=== PATIENT | male | born 1955 | race Asian ===

== ENCOUNTER 2018-04-14 17:30 | Observation (INO) | payer OTHER ==
[~2018-04-14] VITALS: Ht 157.5 cm; Wt 54.0 kg
[2018-04-14 18:06] LABS: ABSOLUTE BASOPHIL COUNT 0 /CUMM (0.0-0.2); ABSOLUTE EOSINOPHIL COUNT 0 /CUMM (0.0-0.7); ABSOLUTE GRANULOCYTE CT 4.9 /CUMM (1.4-6.5); ABSOLUTE MONOCYTE COUNT 0.5 /CUMM (0.10-0.60); BASOPHIL % 0.3 % (0.0-2.0); EOSINOPHIL % 0.4 % (0-5); GRANULOCYTE % 65.7 % (42.2-75.2); MEAN CORPUSCULAR HGB 30.8 PG (27.0-31.0); MEAN CORPUSCULAR VOLUME 90.8 FL (80.0-94.0); MEAN PLATELET VOLUME 7.3 FL (7.4-10.4); PLATELET COUNT 295 /CUMM (130-400); RBC DISTRIBUTION WIDTH 12.8 % (11.5-14.5); RED BLOOD CELL CT 4.74 /CUMM (4.70-6.10); WHITE BLOOD CELL COUNT 7.5 /CUMM (4.8-10.8)
--- NOTE | 2018-04-14 20:05 | ED GI/GU/ABDOMINAL COMPLAINT ---
History of Present Illness General Chief Complaint: Abdominal Pain/Flank Pain Stated Complaint: SENT FROM FOR ABD. PAIN Source: patient, friend, physician assistant primary care Exam Limitations: language barrier Vital Signs & Intake/Output Vital Signs & Intake/Output Vital Signs Date Time Temp Pulse Resp B/P B/P Pulse O2 O2 Flow FiO2 Mean Ox Delivery Rate 04/16 0908 64 130/76 04/16 0800 Room Air 04/16 0623 97.5 66 20 130/76 99 Room Air 04/15 2307 98.0 71 18 128/77 97 Room Air 04/15 1358 98.2 80 20 122/70 97 Room Air 04/15 1155 90 124/72 ED Intake and Output 04/16 0000 04/15 1200 Intake Total 2705 850 Output Total Balance 2705 850 Intake, IV 1625 250 Intake, Oral 1080 600 Number 1 Bowel Movements Patient 53.977 kg Weight Allergies Coded Allergies: No Known Allergies (04/14/18) Reconcile Medications Amoxicillin/Potassium Clav (Augmentin 875-125 Tablet) 875 MG-125 MG TABLET 875 MG PO BID infection m Glimepiride 2 MG TABLET 1 TAB PO DAILY DIABETES (Reported) Levothyroxine Sodium 50 MCG TABLET 1 TAB PO DAILY HYPOTHYROID (Reported) Lisinopril 2.5 MG TABLET 1 TAB PO DAILY HTN (Reported) Metformin HCl 1,000 MG TABLET 1 TAB PO BID DIABETES (Reported) Pantoprazole Sodium 40 MG TABLET.DR 1 TAB PO DAILY GASTRITIS (Reported) Pravastatin Sodium 80 MG TABLET 1 TAB PO DAILY Heart (Reported) Triage Note: pt to ed for abd pain. pain has been ongoing for 2 weeks, vomiting and diarrhea started 3 days ago. pt awake/alert with easy wob, MMM. pt primarily nauruan speaking. pt reports feeling dizzy with frequent vomiting. Triage Nurses Notes Reviewed? yes HPI: 62M no known PMH presenting with cramping abdominal pain, diarrhea, nausea, and vomiting that has been worsening for 3 days. He feels ill and has poor PO intake. He denies fever, chills, sore throat, stiff neck, dysuria, chest pain, SOB. No recent travel or sick contacts. Past History Travel History Traveled to [place] past 21 day No Medical History Any Pertinent Medical History? see below for history Neurological: NONE EENT: NONE Cardiovascular: NONE Respiratory: NONE Gastrointestinal: NONE Hepatic: NONE Renal: NONE Musculoskeletal: NONE Psychiatric: NONE Endocrine: diabetes Surgical History Surgical History: non-contributory Psychosocial History What is your primary language Trinidadian Tobacco Use: Never used Family History Hx Contributory? No Review of Systems Review of Systems Constitutional: Reports: no symptoms. EENTM: Reports: no symptoms. Respiratory: Reports: no symptoms. Cardiovascular: Reports: no symptoms. GI: Reports: no symptoms. Genitourinary: Reports: no symptoms. Musculoskeletal: Reports: no symptoms. Skin: Reports: no symptoms. Neurological/Psychological: Reports: no symptoms. Hematologic/Endocrine: Reports: no symptoms. Immunologic/Allergic: Reports: no symptoms. All Other Systems: Reviewed and Negative Physical Exam Physical Exam General Appearance: well developed/nourished, mild distress, appears ill Head: atraumatic, normal appearance Eyes: Bilateral: normal appearance. Ears, Nose, Throat, Mouth: mm dry Neck: normal inspection, supple, full range of motion Respiratory: normal breath sounds, no respiratory distress Cardiovascular: regular rate/rhythm Gastrointestinal: soft, non-tender Back: normal inspection, normal range of motion Extremities: normal range of motion Neurologic/Psych: awake, alert, oriented x 3, normal mood/affect Skin: intact, normal color, warm/dry Core Measures ACS in differential dx? No Sepsis Present: No Sepsis Focused Exam Completed? No Progress Differential Diagnosis: appendicitis, biliary colic, bowel obstruction, cholecystitis, gastritis, pancreatitis Plan of Care: Orders Procedure Date/time Status Change service to 04/16 0726 Active CBC WITHOUT DIFFERENTIAL 04/16 0600 Active BASIC ELECTROLYTES PLUS BUN&CR 04/16 0600 Complete LACTIC ACID 04/16 0127 Complete Discharge Patient 04/16 UNK Active LACTIC ACID 04/15 1709 Complete CULTURE,STOOL 04/15 1411 Active OVA AND PARASITE ANTIGENS 04/15 1411 Active C.DIFFICILE 04/15 1411 Active LACTIC ACID 04/15 1409 Complete MAGNESIUM 04/15 0236 Complete Lab Add-on Test 04/15 UNK Active Nursing Misc 04/15 UNK Active Current Medications Sig/Maritza Start time Last Medication Dose Stop Time Status Admin Insulin Aspart 0 AT BEDTIME 04/15 2100 AC (NovoLOG) Pravastatin Sodium 20 MG 1700 04/15 1700 AC 04/15 (Pravachol) 1654 Levothyroxine Sodium 0.05 MG DAILY 04/15 1000 AC 04/16 (Synthroid) 0908 Lisinopril 2.5 MG DAILY 04/15 0906 AC 04/16 (Prinivil) 0908 Enoxaparin Sodium 40 MG DAILY 04/15 0900 AC 04/16 (Lovenox) 09 Pantoprazole Sodium 40 MG DAILY 04/15 0900 AC 04/16 (Protonix) 0909 Insulin Aspart 0 TIDAC 04/15 0800 AC 04/16 (NovoLOG) 0908 Acetaminophen 650 MG Q6P PRN 04/15 0145 AC 04/15 (Tylenol) 0748 Acetaminophen 1,000 MG Q6 PRN 04/15 0145 AC (Ofirmev) Dextrose/Sodium 1,000 ML .Q8H 04/15 0145 AC 04/16 Chloride 0551 (D5W-1/2 Normal Saline 1000ML) Lidocaine 1 PAT Q24H PRN 04/15 0145 AC (Lidoderm) Ondansetron HCl 4 MG Q8P PRN 04/15 0145 AC (Zofran) Polyethylene Glycol 17 GM AT BEDTIME PRN 04/15 0145 AC (Miralax) Senna/Docusate Sodium 1 TAB AT BEDTIME PRN 04/15 0145 AC (Senokot S) Laboratory Tests 04/16/18 1000: CBC w Diff Pending, WBC Pending, RBC Pending, Hgb Pending, Hct Pending, MCV Pending, MCH Pending, MCHC Pending, RDW Pending, Plt Count Pending, MPV Pending 04/16/18 0645: Anion Gap 10, Estimated GFR > 60, BUN/Creatinine Ratio 10.0 04/16/18 0320: Lactic Acid 1.5 04/15/18 1730: Lactic Acid 2.6 H 04/15/18 1500: Lactic Acid 2.3 H Microbiology 04/16 945 STOOL: Cryptosporidium Antigen - RECD 04/16 945 STOOL: Giardia Antigen (ZEN) - RECD 04/16 945 STOOL: Clostridium difficile Toxin A & B - RECD 04/16 945 STOOL: Stool Culture - RECD 04/15 1819 STOOL: Clostridium difficile Toxin A & B - CAN Cancelled: MERGED Initial ED EKG: none Departure Departure Disposition: HOME OR SELF CARE Condition: Stable Clinical Impression Primary Impression: Acute gastroenteritis Secondary Impressions: Dehydration, Lactic acidosis Referrals: Jaspreet Vargas MD (PCP/Family) Departure Forms: Customer Survey General Discharge Information Prescriptions: Current Visit Scripts Amoxicillin/Potassium Clav (Augmentin 875-125 Tablet) 875 MG PO BID #14 TAB m Admission Note Spoke With: Allan Deleon MD Documentation of Exam: Documentation of any treatments & extenuating circumstances including Concerns Regarding Discharge (functional status, medication knowledge or non-compliance, living conditions, etc.) that warrant an admission rather than observation: severe dehydration with lactic acidosis due to gastroenteritis, will require admission for fluid resuscitation, monitoring of lactate, GI consult, ID consult
--- NOTE | 2018-04-14 21:21 | CT SCAN REPORT ---
EXAMINATION: CT ABDOMEN AND PELVIS WITH CONTRAST CLINICAL INFORMATION: Abdominal pain and diarrhea. Rule out colitis. COMPARISON: None TECHNIQUE: Multidetector volumetric imaging was performed of the abdomen and pelvis following IV administration of 95 mL of Optiray 320 intravenous contrast. Sagittal and coronal reformatted images were obtained on the technologist's workstation. DLP: 263 mGy-cm FINDINGS: LUNG BASES: Mild dependent subsegmental atelectatic changes are present in the lung bases. There are no pleural effusions. LIVER, GALLBLADDER, AND BILIARY TREE: The liver is normal in size, shape, and attenuation. No focal hepatic lesion or biliary ductal dilatation is present. The gallbladder is unremarkable with no evidence of radiopaque gallstones, gallbladder wall thickening, or obvious pericholecystic inflammatory changes. PANCREAS: Homogeneous in attenuation. SPLEEN: Unremarkable. ADRENAL GLANDS: Unremarkable. KIDNEYS AND URETERS: The kidneys are normal in size, shape, and attenuation. No hydronephrosis, hydroureter, or calculi seen. No perinephric stranding. BLADDER: Well distended without wall thickening or retained stones. GASTROINTESTINAL TRACT: No large bowel thickening is seen. There are no pericolonic inflammatory changes or diverticular disease. There is no evidence of a bowel obstruction. The appendix is normal. ABDOMINAL WALL: No hernia is appreciated. LYMPH NODES: No bulky adenopathy. VASCULAR: Mild atherosclerotic wall calcifications of the abdominal aorta without aneurysmal dilatation. PELVIC VISCERA: Unremarkable. OSSEOUS STRUCTURES: No acute osseous abnormality is seen. IMPRESSION: No bowel thickening or pericolonic inflammatory changes to suggest colitis. No diverticular disease or bowel obstruction. Otherwise, no acute process.
--- NOTE | 2018-04-14 22:58 | History & Physical ---
Ran Marroquin 04/14/18 0743: General Information and HPI MD Statement: I have seen and personally examined WENDY LIMA and documented this H&P. The patient is a 62 year old M who presented with a patient stated chief complaint of [nausea & vomiting]. 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 The pain is mainly in the LUQ, but sometimes radiates to his back. The patient reportedly cannot stand the sight of food without becoming nauseous. He was recently seen by Dr. Zacarias for EGD with biopsy, has not followed up those results. The patient is a vegetarian, and has not eaten anything out of the ordinary lately, nor has he eaten anything that caused others to become ill. He is a non-smoker, denies etoh use or other drug use. 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 Allergies/Medications Allergies: Coded Allergies: No Known Allergies (04/14/18) Compliance With Home Meds: GOOD Past History Travel History Traveled to [place] past 21 day No Medical History Neurological: NONE EENT: NONE Cardiovascular: NONE Respiratory: NONE Gastrointestinal: NONE Hepatic: NONE Renal: NONE Musculoskeletal: NONE Psychiatric: NONE Endocrine: diabetes Surgical History Surgical History: non-contributory Review of Systems Review of Systems Constitutional: Reports: chills. Denies: fever, weakness. Cardiovascular: Denies: chest pain, palpitations, peripheral edema. Respiratory: Denies: cough, short of breath, wheezing. GI: Reports: abdominal pain (LUQ, sometimes radiates @ back), nausea, changes in stool (yellow/caruso stool), vomiting. Denies: diarrhea, melena, bloody stool. Exam & Diagnostic Data Last 24 Hrs of Vital Signs/I&O Vital Signs Date Time Temp Pulse Resp B/P B/P Pulse O2 O2 Flow FiO2 Mean Ox Delivery Rate 04/14 2153 98.2 86 18 140/81 99 Room Air 04/14 1742 96.2 84 16 116/78 96 Room Air Intake & Output 04/15 0800 04/15 0000 04/14 1600 Intake Total 0 Output Total Balance 0 Intake, Oral 0 Patient 53.977 kg 53.977 kg Weight Weight Reported by Patient Measurement Method Physical Exam General Appearance Alert, Oriented X3, Cooperative, No Acute Distress HEENT Atraumatic, PERRLA Cardiovascular Regular Rate, Normal S1, Normal S2, No Murmurs, Superficial pain to palpation on the L chest Lungs Clear to Auscultation, Normal Air Movement Abdomen Normal Bowel Sounds, Soft, Tenderness to palpation in the LUQ and RLQ Neurological Normal Speech, Strength at 5/5 X4 Ext Extremities No Clubbing, No Cyanosis Last 24 Hrs of Labs/Alejandro: Laboratory Tests 04/14/18 1757: Anion Gap 11, Estimated GFR > 60, BUN/Creatinine Ratio 13.8, Glucose 156 H, Lactic Acid 2.3 H, Calcium 9.7, Total Bilirubin 0.8, AST 21, ALT 27, Alkaline Phosphatase 59, Total Protein 7.1, Albumin 4.4, Globulin 2.7, Albumin/Globulin Ratio 1.6, Amylase 64, Lipase 137, CBC w Diff NO MAN DIFF REQ, RBC 4.74, MCV 90.8, MCH 30.8, MCHC 34.0, RDW 12.8, MPV 7.3 L, Gran % 65.7, Lymphocytes % 26.2 , Monocytes % 7.4, Eosinophils % 0.4, Basophils % 0.3, Absolute Granulocytes 4.9 , Absolute Lymphocytes 2.0, Absolute Monocytes 0.5, Absolute Eosinophils 0, Absolute Basophils 0 Microbiology 04/14 2225 URINE ROUT: Urine Culture - RECD 04/14 2203 STOOL: Clostridium difficile Toxin A & B - COLB Assessment/Plan Assessment: 62 year old male with history of diabetes mellitus, presenting with abdominal pain and nausea/vomiting suggestive of gastritis. Lactic acid in the ED was found to be 2.3, but he was afebrile and vitals were grossly within normal limits. Liver enzymes as well as amylase/lipase were likewise wnl. He was not known to have any episodes of emesis in the ED, and recent EGD/colonoscopy on 03/[address] Zacarias showed duodenal mucosal atrophy and mild gastritis, as well as burned-out colitis. Problems: 1. Gastritis 2. Diabetes mellitus Plan: -Place patient in observation status, general medicine -Zofran 4mg IV Q8h prn -D5W-1/2 NS 75mL/hr -Low-dose Novolog ISS with TID and HS coverage -Gastroenterology consultation As Ranked By This Provider Problem List: 1. Diabetes 2. Abdominal pain 3. Nausea & vomiting 4. Gastritis Core Measures/Misc (04/16) Acute Coronary Syndrome ACS Diagnosis: No Congestive Heart Failure Congestive Heart Failure Diagnosis No Cerebrovascular Accident CVA/TIA Diagnosis: No VTE (View Protocol) VTE Risk Factors Age>40 No Mechanical VTE Prophylaxis d/t N/A MechProphylax Ordered No VTE Pharm Prophylaxis d/t NA PharmProphylax ordered Sepsis (View protocol) Sepsis Present: No If YES complete Sepsis Event Note If YES complete Sepsis Event Note Allan Deleon MD 04/14/18 1211: Core Measures/Misc (04/16) Sepsis (View protocol) If YES complete Sepsis Event Note If YES complete Sepsis Event Note Attending MD Review Statement Attending Statement Attending MD Statement: examined this patient, discuss w/resident/PA/SECURITY DELIVERY SPECIALIST, agreed w/resident/PA/SECURITY DELIVERY SPECIALIST Attending Assessment/Plan: 62 year-old Jamaican gentleman presents with nausea, vomiting, and diarrhea. No fevers. CT reassuring. Labs/vitals stable, but for a slightly elevated lactic acid level. Family tells me just the sight of food causes him to become nauseous , and vomit. He underwent colonoscopy just last month, and, outside of findings of a 'burned out colitis', was essentially reassuring. Place in observation for gastroenteritis-like symptoms, with symptomatic rx, no antibiotics, and repeat lactic acid level. Patient non-toxic in appearance, in speaking with nursing there has been no additional vomiting since being here. Would challenge with diet at soonest convenience. Dr. Allan Mitchell MD,Molly 04/15/18 3341: General Information and HPI Allergies/Medications Home Med list Glimepiride 2 MG TABLET 1 TAB PO DAILY DIABETES (Reported) Levothyroxine Sodium 50 MCG TABLET 1 TAB PO DAILY HYPOTHYROID (Reported) Lisinopril 2.5 MG TABLET 1 TAB PO DAILY HTN (Reported) Metformin HCl 1,000 MG TABLET 1 TAB PO BID DIABETES (Reported) Pantoprazole Sodium 40 MG TABLET. 1 TAB PO DAILY GASTRITIS (Reported) Pravastatin Sodium 80 MG TABLET 1 TAB PO DAILY Heart (Reported) Core Measures/Misc (04/16) Sepsis (View protocol) If YES complete Sepsis Event Note If YES complete Sepsis Event Note Resident Review Statement Resident Statement: examined this patient, discussed with international broadcast music librarian, agreed with international broadcast music librarian, discussed with family, reviewed EMR data (avail), amended to note Other Findings: Patient is a 62-year-old Jamaican speaking male with past medical history of diabetes, hypertension, hypothyroidism presenting with chief complaint of abdominal pain and nausea/vomiting. History is limited due to language barrier. Patient's family was present at the time of interview and helped translate. Patient reports abdominal pain that has been ongoing for the past 2 weeks. Abdominal pain is localized to his left upper quadrant. Patient is unable to describe the quality and extent of pain. Patient denies any constipation or diarrhea. Reports that he is stool at times appears to be a caruso/yellow color. Denies any bright red blood per rectum, melena, hematochezia. Patient reports nausea and vomiting after ingestion of food. Denies hematemesis. Patient had an EGD in February 2018 showing duodenal mucosal atrophy and mild gastritis as well as a colonoscopy showing atrophic appearing colonic mucosa suggestive of "burned out colitis" along with a diminutive rectosigmoid polyp. Pathology for small bowel was negative for celiac and biopsy of the epigastrium was negative for H. pylori or malignancy. 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 Reports that he has recently been in [place], [place], [place] and [place]. Patient denies any sick contacts. 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 Reports that he is vegetarian. Medications: Metformin 1000 mg twice a day, pravastatin 80 mg daily, glimepiride 2 mg daily, levothyroxine 50 g daily, lisinopril 2.5 milligrams daily, pantoprazole 40 mg daily, Zofran when necessary Physical exam and labs/imaging as above Patient is a 62-year-old Jamaican male with past medical history of diabetes, hypothyroidism with recent EGD and colonoscopy showing mild gastritis and atrophic colonic mucosa ruled out for H. pylori, malignancy, celiac disease presenting with a 2 week history of ongoing abdominal pain nausea and vomiting. Patient had no episode of nausea or vomiting in the ED. Patient's vitals were stable. Lab findings significant for a lactic acid of 2.3. CT abdomen and pelvis was negative for any acute process. Patient received Zofran 4 mg IV 1, normal saline bolus IV 3, Tylenol IV 1. Patient's symptoms are likely secondary to gastritis however may also be due to gastroparesis. Plan: Observe on the general medicine floor IV fluid hydration, advance diet as tolerated IV Zofran when necessary Trend lactic acid Hold oral hypoglycemic agents NovoLog sliding scale and Accu-Cheks 3 times a day and daily at bedtime IV Protonix Continue home medications: Pravastatin, levothyroxine, lisinopril Consider GI consult in the a.m. if patient's symptoms do not improve. Code: Full code DVT prophylaxis: Alps, Lovenox
[2018-04-15 06:20] VITALS: BP 124/72
--- NOTE | 2018-04-15 08:50 | PN- Housestaff ---
Objective Last 24 Hrs of Vital Signs/I&O Vital Signs Date Time Temp Pulse Resp B/P B/P Pulse O2 O2 Flow FiO2 Mean Ox Delivery Rate 04/15 0620 98.0 90 18 124/72 98 Room Air 04/14 2153 98.2 86 18 140/81 99 Room Air 04/14 1742 96.2 84 16 116/78 96 Room Air Intake & Output 04/15 1600 04/15 0800 04/15 0000 Intake Total 850 0 Output Total Balance 850 0 Intake, IV 250 Intake, Oral 600 0 Patient 53.977 kg 53.977 kg Weight Weight Reported by Patient Measurement Method
[2018-04-15] MEDS ORDERED: PRAVASTATIN SOD80 M2 PO (09:04)
[2018-04-15] MEDS ORDERED: METFORMIN HCL1000 M1 PO (09:04)
[2018-04-15] MEDS ORDERED: LEVOTHYROXINE50 MCG PO (09:05)
[2018-04-15] MEDS ORDERED: PANTOPRAZOLE SO40 M1 PO (09:05)
[2018-04-15] MEDS ORDERED: GLIMEPIRIDE2 MG PO (09:05)
[2018-04-15] MEDS ORDERED: LISINOPRIL2.5 M1 PO (09:05)
--- NOTE | 2018-04-15 09:27 | PN- Housestaff ---
Marcos VALENZUELA,Brenda 04/15/18926: Subjective Follow-up For: GASTRITIS Subjective: Seen and examined. Resting comfortably. There is language barrier patient Moldovan speaking, however he denies any fevers pain or abdominal discomfort. Review of Systems Constitutional: Reports: see HPI. Objective Last 24 Hrs of Vital Signs/I&O Vital Signs Date Time Temp Pulse Resp B/P B/P Pulse O2 O2 Flow FiO2 Mean Ox Delivery Rate 04/15 0620 98.0 90 18 124/72 98 Room Air 04/14 2153 98.2 86 18 140/81 99 Room Air 04/14 1742 96.2 84 16 116/78 96 Room Air Intake & Output 04/15 1600 04/15 0800 04/15 0000 Intake Total 850 0 Output Total Balance 850 0 Intake, IV 250 Intake, Oral 600 0 Patient 119 lb 119 lb Weight Weight Reported by Patient Measurement Method Physical Exam General Appearance: Alert, Oriented X3, Cooperative, No Acute Distress Skin: No Rashes, No Breakdown Neck: Supple, No JVD Cardiovascular: Normal S1, Normal S2, No Murmurs Lungs: Clear to Auscultation, Normal Air Movement Abdomen: Normal Bowel Sounds, Soft, No Tenderness Neurological: Normal Speech Current Medications: Current Medications Sig/Maritza Start time Last Medication Dose Route Stop Time Status Admin Acetaminophen 650 MG Q6P PRN 04/15 0145 AC 04/15 PO 0748 Acetaminophen 1,000 MG Q6 PRN 04/15 014 AC IV Acetaminophen 0 .STK-MED ONE 04/14 2043 DC IV Acetaminophen 1,000 MG ONCE ONE 04/14 2030 DC 04/14 N/A 1 UNIT IV 04/14 2044 2105 Dextrose/Sodium 1,000 ML .[id number] 04/15 014 04/15 Chloride IV 0225 Enoxaparin Sodium 40 MG DAILY 04/15 0900 04/15 SC 0748 Insulin Aspart 0 AT BEDTIME 04/15 2100 AC SC Insulin Aspart 0 TIDAC 04/15 0800 AC 04/15 SC 0816 Insulin Aspart 0 .STK-MED ONE 04/15 0745 DC SC Levothyroxine Sodium 0.05 MG DAILY 04/15 1000 AC PO Lidocaine 1 PAT Q24H PRN 04/15 0145 AC EXT Lisinopril 2.5 MG DAILY 04/15 0906 AC PO Ondansetron HCl 4 MG Q8P PRN 04/15 0145 AC IV Ondansetron HCl 0 .STK-MED ONE 04/14 2044 DC .ROUTE Ondansetron HCl 4 MG ONCE ONE 04/14 2015 DC 04/14 IV 04/14 Pantoprazole Sodium 40 MG DAILY 04/15 0900 AC IV Polyethylene Glycol 17 GM AT BEDTIME PRN 04/15 0145 AC PO Pravastatin Sodium 20 MG 1700 04/15 1700 AC PO Senna/Docusate Sodium 1 TAB AT BEDTIME PRN 04/15 014 AC PO Sodium Chloride 1,000 ML BOLUS ONE 04/14 2100 DC 04/14 IV 04/14 Sodium Chloride 1,000 ML BOLUS ONE 04/14 2015 DC 04/14 IV 04/14 Sodium Chloride 1,000 ML BOLUS ONE 04/14 2015 DC 04/14 IV 04/14 Last 24 Hrs of Lab/Alejandro Results Last 24 Hrs of Labs/Mics: Laboratory Tests 04/15/18 0959: Sodium Pending, Potassium Pending, Chloride Pending, Carbon Dioxide Pending, Anion Gap Pending, BUN Pending, Creatinine Pending, BUN/Creatinine Ratio Pending , Lactic Acid Pending, CBC w Diff Pending, WBC Pending, RBC Pending, Hgb Pending , Hct Pending, MCV Pending, MCH Pending, MCHC Pending, RDW Pending, Plt Count Pending, MPV Pending 04/15/18 0236: Troponin I < 0.01 04/15/18 0236: Lactic Acid 2.3 H 04/14/18 1757: Anion Gap 11, Estimated GFR > 60, BUN/Creatinine Ratio 13.8, Glucose 156 H, Lactic Acid 2.3 H, Calcium 9.7, Total Bilirubin 0.8, AST 21, ALT 27, Alkaline Phosphatase 59, Total Protein 7.1, Albumin 4.4, Globulin 2.7, Albumin/Globulin Ratio 1.6, Amylase 64, Lipase 137, CBC w Diff NO MAN DIFF REQ, RBC 4.74, MCV 90.8, MCH 30.8, MCHC 34.0, RDW 12.8, MPV 7.3 L, Gran % 65.7, Lymphocytes % 26.2 , Monocytes % 7.4, Eosinophils % 0.4, Basophils % 0.3, Absolute Granulocytes 4.9 , Absolute Lymphocytes 2.0, Absolute Monocytes 0.5, Absolute Eosinophils 0, Absolute Basophils 0 Microbiology 04/14 2225 URINE ROUT: Urine Culture - RES 04/14 2203 STOOL: Clostridium difficile Toxin A & B - COLB Assessment/Plan Assessment: Patient is a 62-year-old Moldovan speaking male with past medical history of diabetes, hypertension, hypothyroidism presenting with chief complaint of abdominal pain and nausea/vomiting. He was based on observation on general medicine floor for treatment evaluation of gastritis #Gastritis Patient recently had endoscopy and colonoscopy which showed mild gastritis and atrophic colonic mucosa ruled out for H. pylori, malignancy, celiac disease. He is presenting with a 2 week history of ongoing abdominal pain nausea and vomiting. CT scan is negative for any acute process. Appears to be infectious in etiology viral likely? Ischemic colitis less likely no bright red blood -Continue IV hydration -Continue IV Zofran as needed -Stool for ova or parasites -Rule out C. difficile -Stool culture -GI consult placed -Patient's lactate is trending up will increase hydration -Monitor and repeat electrolytes in setting of diarrhea -Diet as tolerated #Lactic acidosis in setting of gastritis. Patient is afebrile without a white count -Continue IV hydration -Continue to trend lactate #Diabetes mellitus -Monitor fingersticks -NovoLog sliding scale -Home medication glimepiride 2 mg and metformin 1000 mg twice daily on hold #Chronic medical conditions hypertension, hyperlipidemia, hypothyroidism -continue statin levothyroxine and lisinopril DVT prophylaxis with absent Lovenox/full code/ diet as tolerated Problem List: 1. Nausea & vomiting 2. Gastritis 3. Diabetes 4. Abdominal pain Pain Ratin Pain Location: none Pain Goal: Pain 4 or less Pain Plan: prn Tomorrow's Labs & Rationales: cbc bep Rizwan Gongora MD 04/15/18 1303: Attending MD Review Statement Attending Statement Attending MD Statement: examined this patient, discuss w/resident/PA/AIRLINE DISPATCHER, agreed w/resident/PA/AIRLINE DISPATCHER, discussed with family, reviewed EMR data (avail), discussed with nursing, discussed with case mgmt, reviewed images, amended to note Attending Assessment/Plan: Rizwan Lopez M.D. have examined this patient, reviewed available EMR data, personally reviewed images, discussed with resident/PA/AIRLINE DISPATCHER, discussed management plan with housestaff and nursing staff, discussed managment plan all of healthcare providers, discussed management plan with patient and/or family, agreed with resident/PA/AIRLINE DISPATCHER. The past history and parts of the chart have been autopopulated. 62-year-old man with gastroenteritis and recent colitis. Overall he is improved but has been having significant diarrhea and anorexia. He is going to try to eat a little bit more today. There is been a concern of a mild rise in lactate despite hydration. We will continue his IV hydration at this time and request a gastroenterology evaluation given her recent colitis and gastroenteritis. Ischemic colitis is in the differential however his CAT scan has been reassuring and without any obvious pathology. Continue hydration at this time encourage p.o. intake antiemetics if necessary. DVT prophylaxis at all times
[2018-04-15 10:33] LABS: ABSOLUTE BASOPHIL COUNT 0 /CUMM (0.0-0.2); ABSOLUTE EOSINOPHIL COUNT 0 /CUMM (0.0-0.7); ABSOLUTE GRANULOCYTE CT 3.3 /CUMM (1.4-6.5); ABSOLUTE LYMPH COUNT 1.1 /CUMM (1.2-3.4); ABSOLUTE MONOCYTE COUNT 0.4 /CUMM (0.10-0.60); BASOPHIL % 0.6 % (0.0-2.0); EOSINOPHIL % 0.5 % (0-5); GRANULOCYTE % 68.2 % (42.2-75.2); HEMATOCRIT 39.5 % (42-52); MEAN CORPUSCULAR HGB 31.1 PG (27.0-31.0); MEAN CORPUSCULAR HGB CONC 34.2 G/DL (33.0-37.0); MEAN PLATELET VOLUME 7.7 FL (7.4-10.4); PLATELET COUNT 270 /CUMM (130-400); RED BLOOD CELL CT 4.34 /CUMM (4.70-6.10); WHITE BLOOD CELL COUNT 4.9 /CUMM (4.8-10.8)
[2018-04-15 13:58] VITALS: BP 122/70
[2018-04-15 23:07] VITALS: BP 128/77
[2018-04-16 06:23] VITALS: BP 130/76
[2018-04-16 09:08] VITALS: BP 130/76
--- NOTE | 2018-04-16 10:02 | PN- Housestaff ---
Damir Macias 04/16/18 0959: Subjective Follow-up For: Gastritis Diabetes mellitus Subjective: Patient seen and examined at bedside. He denies he is complaining of cough and new onset right ear pain. He denies nausea, vomiting, abdominal pain, diarrhea, constipation, burning micturition, fever, chills Review of Systems Constitutional: Reports: see HPI. Objective Last 24 Hrs of Vital Signs/I&O Vital Signs Date Time Temp Pulse Resp B/P B/P Pulse O2 O2 Flow FiO2 Mean Ox Delivery Rate 04/16 0908 64 130/76 04/16 0623 97.5 66 20 130/76 99 Room Air 04/15 2307 98.0 71 18 128/77 97 Room Air 04/15 1358 98.2 80 20 122/70 97 Room Air 04/15 1155 90 124/72 Intake & Output 04/16 1600 04/16 0800 04/16 0000 Intake Total 1120 1240 Output Total Balance 1120 1240 Intake, IV 1000 1000 Intake, Oral 120 240 Physical Exam General Appearance: Alert, Oriented X3, Cooperative, No Acute Distress HEENT: Atraumatic, PERRLA, EOMI, Mucous Membr. 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 He having a past medical history of burnout colitis and diminutive rectosigmoid polyps. At the time of presentation emergency department patient vitals and labs are given below Vitals: Temperature 97.5, pulse rate 66, respiratory 20, blood pressure 130/76, oxygen saturation 99% on room air Labs: WBC 7.5, Hb/HCT 14.6/43.0, MCV 91, platelet 295, Lactate 2.3, creatinine 0.6, GFR more than 60, BUN/creatinine ratio 10.0 Sodium 136, potassium 4.1, anion gap 10, CT abdomen: No bowel thickening. Colonic inflammatory changes to suggest colitis, diverticular disease or bowel obstruction. Problems addressed: * Acute gastritis * Diarrhea, vomiting * Pain in right ear * Lactic acidosis PLAN: Acute gastritis: * Due to patient current history of 2 weeks nausea vomiting * CT abdomen is negative for any colitis for now * There is no leukocytosis, fever, blood in stool it seemed like viral gastritis * Patient had a recent colonoscopy which was positive for burning colitis and workup was done for celiac disease, H. pylori that was negative. And a polyp was removed * Patient admitted to general medical floor hydration done, C. difficile rule out * Patient is symptomatically improved * He is no more nauseated, abdominal pain, diarrhea, constipation * Patient discharged home today * Patient will follow Dr. Grissom on outpatient basis Lactic acidosis: * Patient lactate level was high but today lactic acid level is less than 2 * Patient having no sign of hypoxia Pain and right ear/vertigo: * Patient having pain in the right ear and vertigo * Patient referred to ENT on outpatient basis Diabetes mellitus: * Patient was treated in hospital with insulin * We will resume his home medication for controlling of diabetes Chronic medical conditions hypertension, hyperlipidemia, hypothyroidism -continue statin levothyroxine and lisinopril DVT prophylaxis with absent Lovenox/full code/ diet as tolerated Problem List: 1. Diabetes 2. Gastritis 3. Nausea & vomiting 4. 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 62 o/m with resolution of his GI symptoms except for mild gastritis. PPI daily Today c/o cough with ear discharge with lightheadedness suspected ear infection and give 1 week of antibiotics course. Follow up PCP and referral to ENT if no improvement in ear symptoms. Medically stable for discahrge.
--- NOTE | 2018-04-16 11:04 | Patient Discharge Instructions ---
Discharge Instructions General Discharge Information You were seen/treated for: Gastritis Nausea vomiting You had these procedures: Gastritis Nausea, vomiting Watch for these problems: Fever, chills, chest pain, blood in sputum, blood and urine, rash, abdominal pain Special Instructions: Please follow-up with your primary care physician in 1 week Please follow-up with limited radiology technician Dr. Grissom in 2 weeks Please follow-up with ENT doctor in 2 weeks Diet Recommended Diet: Diabetic Activity Activity Self Limited: Yes Acute Coronary Syndrome Inclusion Criteria At DC or during hospital stay patient has or had the following: ACS DIAGNOSIS No Discharge Core Measures Meds if any: Prescribed or Continued at Discharge Meds if any: NOT Prescribed or Continued at Discharge Congestive Heart Failure Inclusion Criteria At DC or during hospital stay patient has or had the following: CHF DIAGNOSIS No Discharge Core Measures Meds if any: Prescribed or Continued at Discharge Meds if any: NOT Prescribed or Continued at Discharge Cerebrovascular accident Inclusion Criteria At DC or during hospital stay patient has or had the following: CVA/TIA Diagnosis No Discharge Core Measures Meds if any: Prescribed or Continued at Discharge Meds if any: NOT Prescribed or Continued at Discharge Venous thromboembolism Inclusion Criteria VTE Diagnosis No VTE Type NONE VTE Confirmed by (Test) NONE Discharge Core Measures - Per Current guidelines, there needs to be overlap - treatment for the first 5 days of Warfarin therapy. - If discharged on Warfarin prior to 5 days of - overlap therapy, the patient will need to be - assessed for post discharge needs including - *Post discharge parental anticoagulation - *Warfarin and/or parental anticoagulation education - *Follow up date to check INR post discharge At least 5 days overlap therapy as Inpatient No Meds if any: Prescribed or Continued at Discharge Note: Overlap Therapy is Warfarin and Anticoagulant Meds if any: NOT Prescribed or Continued at Discharge
[2018-04-16] MEDS ORDERED: AUGMENTIN 875-1 EACH PO (11:07)
[2018-04-16 12:15] LABS: ABSOLUTE BASOPHIL COUNT 0 /CUMM (0.0-0.2); ABSOLUTE EOSINOPHIL COUNT 0.1 /CUMM (0.0-0.7); ABSOLUTE GRANULOCYTE CT 4.8 /CUMM (1.4-6.5); ABSOLUTE LYMPH COUNT 1.1 /CUMM (1.2-3.4); ABSOLUTE MONOCYTE COUNT 0.6 /CUMM (0.10-0.60); BASOPHIL % 0.3 % (0.0-2.0); EOSINOPHIL % 0.8 % (0-5); GRANULOCYTE % 73.8 % (42.2-75.2); HEMATOCRIT 39.7 % (42-52); MEAN CORPUSCULAR HGB 30.8 PG (27.0-31.0); MEAN CORPUSCULAR HGB CONC 33.9 G/DL (33.0-37.0); MEAN PLATELET VOLUME 8.5 FL (7.4-10.4); PLATELET COUNT 235 /CUMM (130-400); RBC DISTRIBUTION WIDTH 12.7 % (11.5-14.5); RED BLOOD CELL CT 4.36 /CUMM (4.70-6.10); WHITE BLOOD CELL COUNT 6.5 /CUMM (4.8-10.8)
--- NOTE | 2018-04-16 13:50 | Discharge Summary ---
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 He having a past medical history of burnout colitis and diminutive rectosigmoid polyps. Hospital course: At the time of presentation emergency department patient vitals and labs are given below Vitals: Temperature 97.5, pulse rate 66, respiratory 20, blood pressure 130/76, oxygen saturation 99% on room air Labs: WBC 7.5, Hb/HCT 14.6/43.0, MCV 91, platelet 295, Lactate 2.3, creatinine 0.6, GFR more than 60, BUN/creatinine ratio 10.0 Sodium 136, potassium 4.1, anion gap 10, CT abdomen: No bowel thickening. No Colonic inflammatory changes to suggest colitis, diverticular disease or bowel obstruction. He was treated for the following problem: * Acute gastritis * Diarrhea, vomiting * Pain in right ear * Lactic acidosis PLAN: Acute gastritis: Patient was treated symptomatically. He was hydrated with normal saline. Antiemetic on this losartan was given. Pancreas abdominal pain and omeprazole was given. Patient feeling well with no more nausea, abdominal pain and vomiting. Patient referred for follow-up to Dr. Grissom on outpatient basis for his previous history of burnout colitis. Lactic acidosis: * Patient lactate level was high but today lactic acid level is less than 2 * Lactic acid level normal due to hydration Pain and right ear/vertigo: * Patient having pain in the right ear and vertigo * Patient referred to ENT on outpatient basis Diabetes mellitus: * Patient was treated in hospital with insulin Chronic medical conditions hypertension, hyperlipidemia, hypothyroidism * Continue statin levothyroxine and lisinopril *Patient discharged home today *Patient counseled regarding diabetic diet and medication compliance. Allergies: Coded Allergies: No Known Allergies (04/14/18) Disposition Summary Disposition Principal Diagnosis: Acute gastritis Additional Diagnosis: Hypertension Diabetes, Hypothyroidism Hyperlipidemia Discharge Disposition: home or self care Discharge Instructions General Discharge Information Code Status: Full Code Patient's Diet: Diabetic diet Patient's Activity: Self-limited Follow-Up Instructions/Appts: Please follow-up with your primary care physician 1 week Please follow-up with ENT in 2 weeks Please follow-up with chemical plant operator supervisor in 2 weeks Please follow-up with primary care physician if you need any medical attention Medications at Discharge Discharge Medications: Continue taking these medications: Metformin HCl (Metformin HCl) 1,000 MG TABLET 1 Tablet ORAL TWICE DAILY Comments: DID NOT TAKE IN HOSPITAL Pravastatin Sodium (Pravastatin Sodium) 80 MG TABLET 1 Tablet ORAL DAILY Comments: Last Taken:04/15/18 Time:5:00 PM Glimepiride (Glimepiride) 2 MG TABLET 1 Tablet ORAL DAILY Comments: DID NOT TAKE IN HOSPITAL Levothyroxine Sodium (Levothyroxine Sodium) 50 MCG TABLET 1 Tablet ORAL DAILY Comments: Last Taken:04/16/18 Time:9:00 AM Lisinopril (Lisinopril) 2.5 MG TABLET 1 Tablet ORAL DAILY Comments: Last Taken:04/16/18 Time:9:00 AM Pantoprazole Sodium (Pantoprazole Sodium) 40 MG TABLET.DR 1 Tablet ORAL DAILY Comments: Last Taken:04/16/18 Time:9:00 AM Start taking the following new medications: Amoxicillin/Potassium Clav (Augmentin 875-125 Tablet) 875 MG-125 MG TABLET 875 Milligram ORAL TWICE DAILY Qty = 14 No Refills Instructions: m Comments: DID NOT START IN HOSPITAL Copies To: Alicia VALENZUELA,Jaspreet
== END 2018-04-16 12:40 ==
LOC: ERH 17:30 → ERHI 22:17 → 2NA 22:17 → ENRESERV 04-15 00:13 → 2NA 04-15 01:12 → ENPENDDIS 04-16 11:49 → 2NA 04-16 12:40 → ENTRNSPT 04-16 12:42 → EDTRNSPTSTS 04-16 12:51 → EDTRNSPT 04-16 12:51 → CMPTRNSPT 04-16 13:02
PROVIDERS: Emergency Medicine; Internal Medicine; Student in an Organized Health Care Education/Training Program
DX: K29.70 Gastritis, unspecified, without bleeding (principal); E11.9 Type 2 diabetes mellitus without complications; Z79.84 Long term (current) use of oral hypoglycemic drugs; R10.9 Unspecified abdominal pain; E87.2 Acidosis; R63.0 Anorexia; I10 Essential (primary) hypertension; E78.5 Hyperlipidemia, unspecified; E03.9 Hypothyroidism, unspecified; Z23 Encounter for immunization
CPT/HCPCS: 36415; 36592; 74177; 82436; 87015; 87045; 87086; 87328; 87329; 87899; 87899-59; 93005; 93010; 96372; 96374; 96375; G0008; G0378; J0131; J1650; J1815; J2405; J7042; Q2036